=== PATIENT | male | born 1990 | race Caucasian/White ===

== ENCOUNTER 2017-12-26 20:11 | Emergency (ER) | payer SELFPAY ==
--- NOTE | 2017-12-26 20:48 | EDM.PDOC ---
ED HPI GENERAL MEDICAL PROBLEM - General Chief Complaint: Genitourinary Problem Stated Complaint: TESTTICULAR PAIN Time Seen by Provider: 12/26/17 20:18 Source of Information: Reports: Patient History Limitations: Reports: No Limitations - History of Present Illness INITIAL COMMENTS - FREE TEXT/NARRATIVE: This is a 26-year-old male. He states he's been having symptoms in his testicles for the last week or so and they have discussed getting worse. Apparently he when he tries to ejaculate he doesn't get anything and is very painful. He denies any significant swelling but he says he feels a lot of pressure in his testicles and like they are twisted around. He denies any recent exposure to an infectious source and he denies any drainage or discharge from his penis. He denies any fever or chills. He does state that trying to walk seems to aggravate the soreness in his right testicle. The right testicle seems to be more painful than the left testicle. He denies any difficulty with bowel movements or urination. 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: Other (see below) Other Treatments MOLDING LINE ASSISTANT: motrin - Related Data Allergies Allergy/AdvReac Type Severity Reaction Status Date / Time No Known Allergies Allergy Verified 12/26/17 20:19 Home Meds: Home Meds Doxycycline [Vibramycin] 100 mg PO BID #20 cap 12/26/17 [Rx] Past Medical History - Past Health History Medical/Surgical History: Denies Medical/Surgical History Social & Family History - Tobacco Use Smoking Status *Q: Current Every Day Smoker Years of Tobacco use: 14 Packs/Tins Daily: 3 - Caffeine Use Caffeine Use: Reports: Soda, Tea - Recreational Drug Use Recreational Drug Use: No ED ROS GENERAL - Review of Systems Review Of Systems: See Below Constitutional: Denies: Fever, Chills HEENT: Reports: No Symptoms Respiratory: Reports: No Symptoms Cardiovascular: Reports: No Symptoms Endocrine: Reports: No Symptoms GI/Abdominal: Reports: No Symptoms : Reports: Pain. Denies: Discharge, Dysuria Musculoskeletal: Reports: No Symptoms Skin: Reports: No Symptoms Neurological: Reports: No Symptoms Psychiatric: Reports: No Symptoms Hematologic/Lymphatic: Reports: No Symptoms ED EXAM, RENAL/ - Physical Exam Exam: See Below Exam Limited By: No Limitations General Appearance: Alert, WD/WN, No Apparent Distress Eye Exam: Bilateral Eye: Normal Inspection Ears: Normal External Exam Nose: Normal Inspection Throat/Mouth: Normal Inspection, Normal Lips, Normal Voice, No Airway Compromise Head: Normocephalic Neck: Supple Respiratory/Chest: No Respiratory Distress (Male) Exam: No Hernia, Circumcised, Testicular Tenderness (L), Testicular Tenderness (R), Other (The left epididymis is extremely tender on palpation though the last does not appear to be tender, the right epididymis is also slightly tender, I do not see any particular swelling, no evidence of a hydrocele, the testicles are symmetrical though they are also slightly tender). No: Testicular Mass, Urethral Discharge Rectal (Males) Exam: Deferred Back Exam: Full Range of Motion Extremities: Normal Inspection, Normal Range of Motion Neurological: Alert, Oriented Psychiatric: Normal Affect, Normal Mood Skin Exam: Warm, Dry Course - Vital Signs Last Recorded V/S: Last Vital Signs Temp 98.7 F 12/26/17 20:15 Pulse 113 H 12/26/17 20:15 Resp 20 12/26/17 20:15 BP 152/100 H 12/26/17 20:15 Pulse Ox 100 12/26/17 20:15 - Orders/Labs/Meds Orders: Active Orders 24 hr Category Date Time Status Testicular US [Scrotum and Contents] [US] Stat Exams 12/26/17 20:39 Ordered cefTRIAXone [Rocephin] 1 gm Med 12/26/17 22:15 Active Lidocaine 1% [Xylocaine 1%] 2.1 ml IM Q24H Medication Orders Ceftriaxone Sodium 1 gm/ (Lidocaine HCl 2.1 ml) 0 gm IM Q24H [facility] Meds: Medications Generic Name Dose Route Start Last Admin Trade Name Dedrickq PRN Reason Stop Dose Admin Ceftriaxone Sodium 1 gm/ 0 gm 12/26/17 22:15 Lidocaine HCl 2.1 ml IM Q24H [facility] - Radiology Interpretation Free Text/Narrative:: The tech for ultrasound indicates possibly some epididymitis but no testicle abnormalities no varicocele no cystocele and the blood flow to the testicles was good. - Re-Assessments/Exams Free Text/Narrative Re-Assessment/Exam: 12/26/17 22:07 I spoke to the patient. He technical support coordinator believes he probably has little inflammation in the epididymis but the flow was good and the testicles were good. We will give him a shot of Rocephin and put him on some doxycycline for 10 days. I explained to him that sometimes with infection and a little bit of swelling which will make it hard to ejaculate and sometimes hard to urinate but the antibiotic should take care of that. Departure - Departure Time of Disposition: 22:08 Disposition: Home, Self-Care 01 Condition: Good Clinical Impression: Epididymitis - Discharge Information *PRESCRIPTION DRUG MONITORING PROGRAM REVIEWED*: Not Applicable *COPY OF PRESCRIPTION DRUG MONITORING REPORT IN PATIENT CHARLENE: Not Applicable Prescriptions: Doxycycline [Vibramycin] 100 mg PO BID #20 cap Referrals: PCP,None [Primary Care Provider] - Forms: ED Department Discharge Additional Instructions: Did the antibiotics tomorrow and start taking them in the evening, take them faithfully until they are finished, wear tight underwear which will relieve some of the soreness around the testicle area, did some ibuprofen or Tylenol as needed for the soreness, follow-up with your family doctor in 7-10 days if you still have symptoms, return to the ER if needed - My Orders Last 24 Hours: My Active Orders 12/26/17 20:39 Testicular US [Scrotum and Contents] [US] Stat 12/26/17 22:15 cefTRIAXone [Rocephin] 1 gm Lidocaine 1% [Xylocaine 1%] 2.1 ml IM Q24H - Assessment/Plan Last 24 Hours: My Active Orders 12/26/17 20:39 Testicular US [Scrotum and Contents] [US] Stat 12/26/17 22:15 cefTRIAXone [Rocephin] 1 gm Lidocaine 1% [Xylocaine 1%] 2.1 ml IM Q24H
[2017-12-26] MEDS ORDERED: cefTRIAXone 1 GM, Lidocaine 1% 2.1 ML IM SCH ×2 (22:15)
--- NOTE | 2017-12-28 07:13 | US ---
Testicular ultrasound: Multiple real-time images were obtained of both testicles. Doppler evaluation was also performed. Both testicles have a homogeneous ultrasound appearance. No intratesticular abnormality is seen. Both arterial and venous blood flow are seen within the testicles. Calcification noted posterior to the right testicle which is incidental. Minimal fluid is seen around both testicles which is incidental. No additional finding is seen. Measurements: Right testicle: 4.0 x 2.3 x 3.4 cm Left testicle: 3.5 x 2.1 x 2.9 cm Impression: 1. Incidental findings as noted above. Diagnostic code #2 I agree with preliminary report from [facility], finalized on 12/26/17, 11:32 PM Central Time
== END 2017-12-26 23:05 | disposition home or self-care (01) ==
LOC: JD.ED 20:11
DX: N45.1 Epididymitis (principal); F17.210 Nicotine dependence, cigarettes, uncomplicated
CPT/HCPCS: 76870; 93975; 99284; J0696; 99283

== ENCOUNTER 2017-12-27 14:38 | Emergency (ER) | payer SELFPAY ==
--- NOTE | 2017-12-27 16:12 | EDM.PDOC ---
ED HPI GENERAL MEDICAL PROBLEM - General Chief Complaint: Neck Problem Stated Complaint: NECK INJURY Time Seen by Provider: 12/27/17 15:17 Source of Information: Reports: Patient, Family (Sister) History Limitations: Reports: Uncooperative - History of Present Illness INITIAL COMMENTS - FREE TEXT/NARRATIVE: Medical records indicate that the patient was seen in this ED by Dr. Stone last night, 12/26/2017, for complaint of bilateral testicular pain, right worse than left, whenever he tried to ejaculate. He stated that he felt like there was pressure in his testicles and that they were twisted. Walking aggravated the pain in his right testicle. On examination, the left epididymis was extremely tender to palpation, and the right epididymis slightly tender. No other physical abnormalities were found, and there was no urethral discharge. Workup included a scrotal ultrasound that suggested epididymitis, but no other abnormalities. The patient was treated with 1 g of IM ceftriaxone, and discharged home with a prescription for 10 day course of oral doxycycline 100 mg po BID. The patient now returns to the ED with a different issue. He states that he has not filled his prescription for doxycycline, and also informed the nurse that he puts something in his urethra whenever he wants to ejaculate, telling her that he is unable to ejaculate if he does not insert something in his urethra. This is information that had not been provided to Dr. Stone last night. He states that he manually cracks his neck multiple times per day, using one or both hands to do so. He states that he cracked his neck this morning, then felt funny. He states that he rolled his head around (he demonstrated neck range of motion), then states that he developed pain to his left scapular area. When the patient arrived to the ED, a cervical collar was placed, at which time the patient states that his head fell over and that he could not lift it, and that his legs became numb. He was rolled to the examination room in a wheelchair, then refused to move to the gurney until essentially commanded to do so. He stated that he was unable to move his legs, however, when we did transfer him, he was able to bear weight. Once on the gurney, his paralysis symptoms suddenly resolved. The patient does not have a PCP. - Related Data Allergies Allergy/AdvReac Type Severity Reaction Status Date / Time No Known Allergies Allergy Verified 12/26/17 20:19 Home Meds: Home Meds Doxycycline [Vibramycin] 100 mg PO BID #20 cap 12/26/17 [Rx] Past Medical History - Past Surgical History HEENT Surgical History: Reports: Oral Surgery (wisdom teeth extraction) Social & Family History - Tobacco Use Smoking Status *Q: Current Every Day Smoker Years of Tobacco use: 14 Packs/Tins Daily: 3 - Caffeine Use Caffeine Use: Reports: Soda, Tea - Alcohol Use Alcohol Use History: Yes Alcohol Use Frequency: Socially - Recreational Drug Use Recreational Drug Use: Yes Recreational Drug Type: Reports: Marijuana/Hashish (last smoked in 2015) Recreational Drug Use Frequency: Rarely - Living Situation & Occupation Living situation: Reports: Single, with Family (Sister + her family) Occupation: Employed ([employer]) ED ROS GENERAL - Review of Systems Review Of Systems: ROS reveals no pertinent complaints other than HPI. ED EXAM, UPPER BACK/NECK PAIN - Physical Exam Exam: See Below Exam Limited By: No Limitations General Appearance: Alert, WD/WN, No Apparent Distress Eye Exam: Bilateral Eye: EOMI, Normal Inspection Ears Exam: Normal External Exam, Hearing Grossly Normal Nose Exam: Normal Inspection, No Blood Throat/Mouth Exam: Normal Inspection, Normal Lips, Normal Voice, No Airway Compromise Head Exam: Atraumatic, Normocephalic Neck Exam: Non-Tender, Full Range of Motion, Normal Alignment, Normal Inspection Cardiovascular/Respiratory: Regular Rate, Rhythm, No M/R/G, Normal Peripheral Pulses, No JVD, Normal Breath Sounds, No Respiratory Distress GI/Abdominal: Normal Bowel Sounds, Soft, Non-Tender, No Organomegaly, No Distention, No Abnormal Bruit, No Mass (Male) Exam: Deferred Rectal (Males) Exam: Deferred Back Exam: Normal Inspection, Full Range of Motion, NT Extremities: Normal Inspection, Normal Range of Motion, No Pedal Edema, Normal Capillary Refill Neurologic: professor of geology II-XII nml As Tested, No Motor/Sensory Deficits, Alert, Oriented x 3 Psychiatric: Other (Suspicious) Skin Exam: Normal Color, Warm/Dry Course - Vital Signs Last Recorded V/S: Last Vital Signs Temp 36.6 C 12/27/17 15:23 Pulse 86 12/27/17 15:23 Resp 22 H 12/27/17 15:23 BP 143/105 H 12/27/17 15:23 Pulse Ox 100 12/27/17 15:23 - Re-Assessments/Exams Free Text/Narrative Re-Assessment/Exam: 12/27/17 16:12 Given the patient's bizarre behavior, I ordered a urine drug screen. Notified by Chetna ANTUNEZ that the patient refused to provide a urine sample. 12/27/17 16:20 CT of the cervical spine without contrast is read by [facility] as: No evidence of acute fracture or dislocation. 12/27/17 16:46 The cervical collar was removed. The patient initially reported that he had tenderness to palpation of his posterior cervical spine, however, he then started to twist his head around, and even started cracking his neck using his hands, as he reported he does numerous times per day, all without any new symptoms. He then began complaining that his left sternocleidomastoid muscle is "popping out", although I do not see any physical abnormality. I suggested that the patient may be suffering from a muscle spasm, possibly related to his cracking of his neck. I'm recommending ibuprofen. Given the patient's bizarre behavior, drug use, in particular, some sort of amphetamine or bath salt, is strongly suspected, however, since the patient was unwilling to provide a urine sample, I cannot be certain. Departure - Departure Time of Disposition: 16:47 Disposition: Home, Self-Care 01 Condition: Good Clinical Impression: Neck pain on left side - Discharge Information *PRESCRIPTION DRUG MONITORING PROGRAM REVIEWED*: Not Applicable *COPY OF PRESCRIPTION DRUG MONITORING REPORT IN PATIENT CHARLENE: Not Applicable Instructions: Musculoskeletal Pain Referrals: PCP,None [Primary Care Provider] - Forms: ED Department Discharge Additional Instructions: You were seen in the emergency room for left neck and scapular area pain. Workup in the ER included a CT scan of your cervical spine, which was normal. You have not broken a bone in your neck. There are symptoms are likely related to muscle spasms. We recommend that you take [id number] ibuprofen, 2-3 tablets (400-600 mg) every 8 hours, with food, as needed for discomfort. If any other problems, please do not hesitate to return to the ER.
--- NOTE | 2017-12-28 07:12 | CT ---
CT cervical spine Technique: Multiple axial sections were obtained from above C1 inferiorly to the top of T3. Reconstructed sagittal and coronal images were reviewed. Comparison: No previous cervical spine imaging. Findings: Vertebral body heights and disc spaces are maintained. Posterior skull base is intact. No bony central or bony neural foraminal stenosis is seen. No fracture is identified. No abnormal subluxation is seen. Impression: 1. Nothing acute is identified on CT study of the cervical spine. Diagnostic code #1 I agree with preliminary report from [facility], finalized on 12/27/17, 5:13 PM Central Time
== END 2017-12-27 16:55 | disposition home or self-care (01) ==
LOC: JD.ED 14:38
DX: M54.2 Cervicalgia (principal); N45.1 Epididymitis; F17.210 Nicotine dependence, cigarettes, uncomplicated
CPT/HCPCS: 72125; 72125-26; 99283; 99284-25

== ENCOUNTER 2021-05-10 13:28 | Emergency (ER) | payer SELFPAY ==
[2021-05-10] MEDS ORDERED: Albuterol/Ipratropium 3.0-0.5 MG/3 ML Neb Soln NEB ONE (14:28)
[2021-05-10] MEDS ORDERED: predniSONE 20 MG Tab PO ONE (15:21)
== END 2021-05-10 17:19 | disposition home or self-care (01) ==
LOC: JD.ED 13:28
DX: J45.909 Unspecified asthma, uncomplicated (principal); Z79.899 Other long term (current) drug therapy; Z86.16 Personal history of COVID-19; Z87.891 Personal history of nicotine dependence
CPT/HCPCS: 94640; 99284; J7512; J7620-GY

== ENCOUNTER 2023-12-13 18:38 | Day surgery (SDC) | payer BC ==
[2023-12-13 19:26] LABS: BASOPHILS ABSOLUTE AUTO 0.1 K/mm3 (0.0-0.2); BASOPHILS PERCENT AUTO 0.9 % (0.0-1.0); EOSINOPHILS ABSOLUTE AUTO 0.2 K/mm3 (0.0-0.4); EOSINOPHILS PERCENT AUTO 2.7 % (0.0-6.0); HEMATOCRIT 44.4 % (42.0-52.0); HEMOGLOBIN 14.7 gm/dl (14.0-18.0); IMMATURE GRAN ABSOLUTE AUTO 0.01 K/mm3 (0.00-0.05); IMMATURE GRAN PERCENT AUTO 0.1 % (0.0-0.4); LYMPHOCYTES ABSOLUTE AUTO 1.5 K/mm3 (1.0-4.8); MEAN CORPUSCULAR HEMOGLOBIN 30.8 pg (28.0-32.0); MEAN CORPUSCULAR HGB CONC 33.1 g/dl (32.0-36.0); MEAN CORPUSCULAR VOLUME 92.9 fl (83.0-99.0); MEAN PLATELET VOLUME 8.6 fl (9.4-12.4); MONOCYTES ABSOLUTE AUTO 0.5 K/mm3 (0.0-0.8); MONOCYTES PERCENT AUTO 7.6 % (0.0-8.0); NEUTROPHILS ABSOLUTE AUTO 4.7 K/mm3 (1.8-7.7); NEUTROPHILS PERCENT AUTO 66.7 % (41.0-71.0); PLATELET COUNT,PLT 227 K/mm3 (150-400); RED BLOOD CELL COUNT 4.78 M/mm3 (4.52-5.90)
[2023-12-13] MEDS: Sodium Chloride 0.9% 1,000 ML IV STA (19:31)
[2023-12-13] MEDS: Sodium Chloride 0.9% 10 ML Syringe FLUSH PRN (19:31)
[2023-12-13 19:54] LABS: A/G RATIO 1.2 (1-2); ALBUMIN 3.9 g/dl (3.4-5.0); ANION GAP 12.2 (5-15); BILIRUBIN TOTAL 1.1 mg/dL (0.2-1.0); C-REACTIVE PROTEIN 3.59 mg/dL (<0.30); CALCIUM 9.1 mg/dL (8.5-10.1); CREATININE 0.8 mg/dL (0.7-1.3); EST CRCL DRUG DOSING (CG) 119.07 mL/min; POTASSIUM,K 4.2 mEq/L (3.5-5.1); PROTEIN TOTAL,TP 7.1 g/dl (6.4-8.2)
[2023-12-13] MEDS ORDERED: Lactated Ringers 1,000 ML IV ONE (20:19)
[2023-12-13] MEDS ORDERED: Propofol 200 MG/20 ML SDV ONE (20:23)
[2023-12-13] MEDS ORDERED: Midazolam 1 MG/ML 2 ML SDV ONE (20:23)
[2023-12-13] MEDS ORDERED: fentaNYL 250 MCG/5 ML SDV ONE (20:23)
[2023-12-13] MEDS ORDERED: Lidocaine 1% 4 ML ONE (20:26)
[2023-12-13] MEDS ORDERED: Rocuronium 50 MG/5 ML Vial ONE (20:26)
[2023-12-13] MEDS ORDERED: Sodium Chloride 0.9% 1,000 ML IV SCH (20:30)
[2023-12-13] MEDS: Ampicillin/Sulbactam Na 3 GM in Sodium Chloride 0.9% 100 ML IV ONE (20:57)
[2023-12-13] MEDS ORDERED: Sodium Chloride 0.9% 10 ML Syringe FLUSH PRN (21:11)
[2023-12-13] MEDS ORDERED: Lactated Ringers 1,000 ML IV SCH (21:15)
[2023-12-13] MEDS ORDERED: Dexamethasone 4 MG/ML 5 ML MDV ONE (22:13)
[2023-12-13] MEDS ORDERED: Ondansetron 4 MG/2 ML SDV ONE (22:13)
[2023-12-13] MEDS ORDERED: Neostigmine Methylsulfate 10 MG/10 ML MDV ONE (23:16)
[2023-12-13] MEDS ORDERED: dexmedeTOMIDine HCl 200 MCG/2 ML SDV ONE (23:38)
[2023-12-13] MEDS: Lidocaine 1% with EPINEPHrine 1:100,000 20 ML MDV ONE (23:54)
[2023-12-13] MEDS: Bupivacaine 0.5% 30 ML SDV ONE (23:58)
[2023-12-14] MEDS: Sodium Chloride 0.9% 50 ML SDV ONE
[2023-12-14] MEDS ORDERED: Acetaminophen/HYDROcodone 325-5 MG Tab PO PRN (01:02)
[2023-12-14] MEDS ORDERED: fentaNYL 100 MCG/2 ML SDV IVPUSH PRN (01:02)
[2023-12-14] MEDS ORDERED: Lidocaine 2% 11 ML Jelly Filled Syringe ONE (01:37)
== END 2023-12-14 02:21 | disposition home or self-care (01) ==
LOC: JD.ED 18:38 → JD.SDS 20:18
PROVIDERS: ATTEND Student in an Organized Health Care Education/Training Program
DX: K35.33 Acute appendicitis with perforation, localized peritonitis, and gangrene, with abscess (principal); J45.909 Unspecified asthma, uncomplicated; F32.A Depression, unspecified; Z79.899 Other long term (current) drug therapy; Z91.040 Latex allergy status
CPT/HCPCS: 00840; 36415; 80053; 85025; 86140; 96365; 99140; 99284-25; 99285; A9270-GY; J0295; J0665; J1100; J2250; J2405; J2704; J2710; J3010; J3490; J7030; J7120